=== PATIENT | male | born 1950 | race Caucasian/White ===

== ENCOUNTER 2025-02-13 20:42 | Emergency (ER) | payer OTHER, MEDICARE, SELFPAY ==
[2025-02-13 20:46] VITALS: BP 152/97
--- NOTE | 2025-02-13 21:16 | ED.GENMED ---
History of Present Illness
General
Chief Complaint: Nose Bleed
Source: patient
Time Seen by Provider: 02/13/25 21:05
History of Present Illness
History of Present Illness:
74-year-old male with past medical history of hypertension hyperlipidemia presenting to the ER for a sudden onset of epistaxis from the right nare about an hour and a half prior to arrival to the ER. Patient held pressure but with continued
bleeding. He notes that he had to have this area cauterized a few years ago by an ENT through [facility]. Does not follow with ENT regularly. Patient takes daily 81 mg aspirin. No other concerns
Past History
Past History
ED Past Medical History: HTN and Hypercholesterolemia
ED Past Surgical History: None
Social History
Tobacco: Non-smoker
Alcohol: None
Drug: None
Personal:
Living: with family
Review of Systems
Review of Systems
All Other Systems: ROS reviewed and negative except as documented in HPI and ROS
Phy Exam
Physical Exam
Physical Exam:
GENERAL: Alert , in no apparent distress
EYE: conjunctiva clear
Head: Normocephalic atraumatic
NECK: Supple,
ENT: mmm. Nose clamp in place, when removed there was no active bleeding but there was slight oozing from the right nare along the septum but no septal hematoma appreciated suspicion for
LUNGS: no acute respiratory distress
NEUROLOGICAL: Alert and oriented
SKIN: Warm and dry, skin intact.
MUSCULOSKELETAL: well perfused.
PSYCH: Normal and appropriate interaction.
Scores
Heart Failure Risk
Heart Failure Risk Score: Not Applicable
Heart Score for Chest Pain Patients
STEMI patient?: Not applicable
Withdrawal Assessment of Alcohol
Withdrawal Assessment Completed?: Not applicable
Course
Orders/Labs/Results
Orders:
Orders
02/13/25 21:11
Oxymetazoline HCl [Afrin Nasal Drums] See Dose Instructions NASAL NOW STA
Vital Signs
Initial and Last Documented VS:
Initial Vital Signs
Pulse Resp BP Pulse Ox
67 18 152/97 97
02/13/25 20:46 02/13/25 20:46 02/13/25 20:46 02/13/25 20:46
Last Documented Vital Signs
Pulse Resp BP Pulse Ox
67 18 152/97 97
02/13/25 20:46 02/13/25 20:46 02/13/25 20:46 02/13/25 21:18
Procedures
Nosebleed
Drug treatment: Lidocaine and Epinephrine
Treatment: local pressure applied and other (7.5mm rhinorocket)
Post treatment bleeding: none- good control
MDM/Problems Addressed
Differential Diagnosis Includes:
Anterior vs Posterior nose bleed
Septal Hematoma
No trauma
MDM/Problems Addressed:
74-year-old male presenting the ER for epistaxis to the right nare. Light pressure seems to be temporizing symptoms presently. Will instill Afrin into the affected area. If bleeding persists will need to consider packing and further outpatient
follow-up with the ENT.
*Pulse Oximetry
SaO2: 97
Oxygen Mode of Delivery: Room air
Patient hypoxic: no
*Critical Care Note
Total Time (30-74mins, 75-104mins- exclusive of procedures): Not Applicable
Patient Management
Escalation/DeEscalation of care consider admission/obs:
Despite initial improvement of nosebleed, patient had recurrence after he was ready for discharge. Due to history of requiring cauterization ultimately decided to place a Rhino Rocket to achieve continued hemostasis. Procedure without difficulty.
Patient will follow-up with ENT. Aware of return precautions.
ED Attending Note
-
Portions of this chart may have been created with voice recognition software.� Occasional wrong word or��sound alike� substitutions may have occurred due to the inherent limitations of voice recognition software.
Discharge Plan
Departure
Patient Disposition: Home (Routine Discharge)
Date of Disposition: 02/13/25
Time of Disposition: 22:28
Patient with high blood pressure during this ER visit?: Yes
Discharge Problem:
Epistaxis
Instructions: Nosebleeds (DC)
Prescriptions:
No Action
famotidine 20 mg Tablet
20 mg PO DAILY
losartan 100 mg Tablet
100 mg PO DAILY
Rx Instructions:
pt does not know dose
omeprazole 20 mg Tablet,Delayed Release (Dr/Ec)
20 mg PO DAILY
multivitamin Tablet
1 tab PO DAILY
ferrous sulfate 325 mg (65 mg iron) Tablet
325 mg PO DAILY
atorvastatin 20 mg Tablet
20 mg PO QPM Qty: 30 0RF
aspirin 81 mg Tablet,Chewable
81 mg PO DAILY Qty: 100 0RF
Referrals:
Fannie Belle DO [Family Provider, Family Practice]
Nely Mcdonald MD [Active, Otology]
Referral Note: Please call the office in the morning for an appointment time
Interventions
Interventions:
*General Assessment Last Done: 02/13/25 21:02
*Neglect/Abuse Screening Last Done: 02/13/25 20:46
*ED COVID-19 Vaccine History Last Done: 02/13/25 21:02
*ED Influenza Vaccine History Last Done: 02/13/25 21:02
[facility] Fall Risk Assessment Tool Last Done: 02/13/25 21:02
*Risk Screen - Suicide (C-SSRS) Last Done: 02/13/25 20:46
*Nursing Disposition Last Done: 02/13/25 22:47
ED-EENT Assessment Last Done: 02/13/25 21:02
Discharge Date and Time
Discharge Date/Time: 02/13/25 22:48
Print Language: GABONESE
[2025-02-13] MEDS: AFRIN NASAL SPRAY 2 SPRAYS NASAL (21:23)
== END 2025-02-13 22:48 | disposition home or self-care (01) ==
LOC: EMR 20:42
PROVIDERS: EMERGENCY PHYSICIAN Student in an Organized Health Care Education/Training Program; FAMILY PHYSICIAN Family Medicine
DX: R04.0 Epistaxis (principal); I10 Essential (primary) hypertension; E78.00 Pure hypercholesterolemia, unspecified; Z79.82 Long term (current) use of aspirin
CPT/HCPCS: 30901; 99283